=== PATIENT | male | born 1945 | race Caucasian/White ===

== ENCOUNTER 2018-11-12 18:41 | Observation (INO) | payer MEDICARE, OTHER, SELFPAY ==
[~2018-11-12] VITALS: Ht 177.8 cm; Wt 93.6 kg
[~2018-11-12 18:41] MED LIST: ASPI81TA44 PO; ATOR10TA PO; CHOL10002 PO; KRIL500C PO; METO25TA6 PO; MULT-38 PO; NITR0.4T SL; OMEP20TA23 PO; PANT-47 PO; VITC500T PO
[2018-11-12 19:22] LABS: BASOPHILS # (AUTO) 0.1 X10'3 (0-0.2); BASOPHILS % (AUTO) 1.1 % (0-1); EOSINOPHILS # (AUTO) 0.3 X10'3 (0-0.9); EOSINOPHILS % (AUTO) 4.9 % (0-6); HEMOGLOBIN 13.6 g/dl (14.0-17.9); LYMPHOCYTES # (AUTO) 1.9 X10'3 (1.1-4.8); LYMPHOCYTES % (AUTO) 29.2 % (21-51); MEAN CORPUSCULAR HEMOGLOBIN 31.1 PG (27.0-31.0); MEAN CORPUSCULAR HGB CONC 34.1 g/dL (33.0-36.5); MEAN CORPUSCULAR VOLUME 91.3 FL (78-98); MEAN PLATELET VOLUME 7.6 FL (7.4-10.4); MONOCYTES # (AUTO) 0.6 X10'3 (0-0.9); MONOCYTES % (AUTO) 9.1 % (2-12); NEUTROPHILS # (AUTO) 3.6 X10'3 (1.8-7.7); NEUTROPHILS % (AUTO) 55.7 % (42-75); PLATELET COUNT 182 X10'3 (140-440); RED BLOOD COUNT 4.39 X10'6 (4.70-6.10); RED CELL DISTRIBUTION WIDTH 13.5 % (11.5-14.5); WHITE BLOOD COUNT 6.5 X10'3 (4.5-11.0)
[2018-11-12 19:37] LABS: PARTIAL THROMBOPLASTIN TIME 26 SECONDS (22-32)
[2018-11-12 19:40] LABS: ALANINE AMINOTRANSFERASE 36 U/L (12-78); ALBUMIN 3.7 G/DL (3.4-5.0); ALKALINE PHOSPHATASE 81 IU/L (46-116); ANION GAP 6 (8-16); ASPARTATE AMINO TRANSFERASE 22 U/L (10-37); BILIRUBIN,TOTAL 1.2 MG/DL (0.1-1.0); BLOOD UREA NITROGEN 15 MG/DL (7-18); BUN/CREATININE RATIO 12.4 (5.4-32.0); CALCIUM 9.5 MG/DL (8.5-10.1); CHLORIDE 105 MMOL/L (99-107); CREATININE 1.21 MG/DL (0.60-1.10); GLUCOSE 97 MG/DL (70-104); POTASSIUM 4.3 MMOL/L (3.5-5.1); SODIUM 140 MMOL/L (135-145); TOTAL CARBON DIOXIDE 28.9 MMOL/L (24-32); TOTAL PROTEIN 7.3 G/DL (6.4-8.2); eGFR 59 ML/MIN
[2018-11-12] MEDS ORDERED: aspirin 81mg tab.chew PO ONE (22:35)
[2018-11-12] MEDS ORDERED: nitroGLYCERIN 0.4mg SUBLingual tab SL PRN (22:35)
--- NOTE | 2018-11-12 23:00 | NUR ---
Patient states he has "a little chest pressure" does not want Nitroglycerin at this time. States pain is "same as before but less"
[2018-11-13] MEDS ORDERED: HYDROcodone/acetaminophen 10/325mg tab PO PRN (01:10)
[2018-11-13] MEDS ORDERED: magnesium hydroxide 30ml (MOM) UD suspension PO PRN (01:10)
[2018-11-13] MEDS ORDERED: acetaminophen 325mg tablet PO PRN (01:10)
[2018-11-13] MEDS ORDERED: ondansetron/PF 4mg/2ml inj IV PRN (01:10)
[2018-11-13] MEDS ORDERED: mag hydrox/Alum hydrox/simeth 30ml oral suspension PO PRN (01:10)
[2018-11-13] MEDS ORDERED: HYDROcodone/acetaminophen 5mg/325mg tablet PO PRN (01:10)
[2018-11-13] MEDS ORDERED: ATOR40TA PO (01:19)
--- NOTE | 2018-11-13 02:26 | NUR ---
Patient in room PCU 3021. I have received report from MOHAN Deleon in the ER and had the opportunity to ask questions and assume patient care.
--- NOTE | 2018-11-13 02:49 | NUR ---
Arrived to the floor in a wheelchair w/o problem, the patient ambulated to his bed independently.
[2018-11-13 03:09] VITALS: BP 116/68
[2018-11-13 06:00] VITALS: BP 105/60
--- NOTE | 2018-11-13 06:20 | NUR ---
Problems reprioritized. Patient report given, questions answered & plan of care reviewed with Art,RN.
[2018-11-13] MEDS ORDERED: enoxaparin 60mg/0.6ml syringe SUBCUT SCH (08:00)
[2018-11-13] MEDS ORDERED: enoxaparin 30mg/0.3ml syringe SUBCUT SCH (08:00)
[2018-11-13] MEDS: metoprolol tartrate 25mg tablet PO SCH ×2 (08:00→21:03)
[2018-11-13] MEDS: atorvastatin 20mg tablet PO SCH (08:07)
[2018-11-13] MEDS: vitamin D (cholecalciferol) 1,000 unit tablet PO SCH (08:07)
[2018-11-13] MEDS: ascorbic acid 500mg tablet PO SCH (08:08)
[2018-11-13] MEDS: aspirin 81mg tablet.DR PO SCH (08:08)
[2018-11-13] MEDS: multivitamins, therapeutics tablet PO SCH (08:08)
[2018-11-13] MEDS ORDERED: SILD100T PO (09:54)
[2018-11-13] MEDS ORDERED: METO-384 PO (09:54)
[2018-11-13] MEDS ORDERED: NITR0.4T SL (10:04)
[2018-11-13 11:00] VITALS: BP 111/55
--- NOTE | 2018-11-13 11:52 | NUR ---
Patient in room PCU 3021. I have received report from Art RN and had the opportunity to ask questions and assume patient care.
[2018-11-13 15:00] VITALS: BP 118/60
--- NOTE | 2018-11-13 15:15 | NUR ---
PAGER ID: [phone] MESSAGE: manuel Fuller in [phone] is NPO for a stress test, yet their is no stress test ordered. Pt also has orders for a Paracentesis, but your notes don't indicate why. If he isn't going to have a stress test today, can we feed him? Art, [id number]
[2018-11-13] MEDS ORDERED: nitroGLYCERIN 0.4mg SUBLingual tab SL PRN (15:20)
[2018-11-13] MEDS ORDERED: aminophylline 250mg/10ml inj. IV PRN (15:20)
[2018-11-13] MEDS ORDERED: regadenoson 0.4mg/5ml syringe IV ONE (15:20)
[2018-11-13] MEDS ORDERED: metoprolol tartrate 1mg/ml inj IV PRN (15:20)
--- NOTE | 2018-11-13 18:46 | NUR ---
Problems reprioritized. Patient report given, questions answered & plan of care reviewed with MOHAN Gupta.
[2018-11-13 19:00] VITALS: BP 112/59
--- NOTE | 2018-11-13 19:25 | NUR ---
Patient in room PCU 3021. I have received report from MOHAN Kennedy and had the opportunity to ask questions and assume patient care. Patient awake for bedside report and stable at this time. On room air and SL with PIV R AC. Will continue to monitor closely.
--- NOTE | 2018-11-13 21:06 | NUR ---
Late administration of 25 mg metoprolol PO due to priority of care. VS stable and within parameters. Will continue to monitor closely.
[2018-11-13 23:00] VITALS: BP 99/58
[2018-11-14] VITALS (11 sets, daily range): BP systolic 96–132; BP diastolic 16–65
[2018-11-14 06:10] LABS: BASOPHILS % (AUTO) 0.6 % (0-1); EOSINOPHILS # (AUTO) 0.3 X10'3 (0-0.9); EOSINOPHILS % (AUTO) 4.4 % (0-6); HEMATOCRIT 38.2 % (42.0-52.0); HEMOGLOBIN 13.4 g/dl (14.0-17.9); LYMPHOCYTES # (AUTO) 1.5 X10'3 (1.1-4.8); LYMPHOCYTES % (AUTO) 24.7 % (21-51); MEAN CORPUSCULAR HEMOGLOBIN 31.4 PG (27.0-31.0); MEAN CORPUSCULAR HGB CONC 35.1 g/dL (33.0-36.5); MEAN CORPUSCULAR VOLUME 89.3 FL (78-98); MEAN PLATELET VOLUME 7.6 FL (7.4-10.4); MONOCYTES # (AUTO) 0.5 X10'3 (0-0.9); MONOCYTES % (AUTO) 8.7 % (2-12); NEUTROPHILS # (AUTO) 3.7 X10'3 (1.8-7.7); NEUTROPHILS % (AUTO) 61.6 % (42-75); PLATELET COUNT 166 X10'3 (140-440); RED BLOOD COUNT 4.28 X10'6 (4.70-6.10); RED CELL DISTRIBUTION WIDTH 13.5 % (11.5-14.5); WHITE BLOOD COUNT 6.1 X10'3 (4.5-11.0)
--- NOTE | 2018-11-14 06:24 | NUR ---
Problems reprioritized. Patient report given, questions answered & plan of care reviewed with MOHAN Forman.
[2018-11-14 06:30] LABS: ALANINE AMINOTRANSFERASE 28 U/L (12-78); ALBUMIN 3.3 G/DL (3.4-5.0); ALKALINE PHOSPHATASE 75 IU/L (46-116); ANION GAP 7 (8-16); ASPARTATE AMINO TRANSFERASE 23 U/L (10-37); BILIRUBIN,TOTAL 1.2 MG/DL (0.1-1.0); BLOOD UREA NITROGEN 17 MG/DL (7-18); BUN/CREATININE RATIO 14.9 (5.4-32.0); CALCIUM 9.2 MG/DL (8.5-10.1); CHLORIDE 107 MMOL/L (99-107); CREATININE 1.14 MG/DL (0.60-1.10); GLUCOSE 96 MG/DL (70-104); POTASSIUM 4.2 MMOL/L (3.5-5.1); SODIUM 141 MMOL/L (135-145); TOTAL CARBON DIOXIDE 26.9 MMOL/L (24-32); TOTAL PROTEIN 6.6 G/DL (6.4-8.2); eGFR 63 ML/MIN
[2018-11-14] MEDS: metoprolol tartrate 25mg tablet PO SCH (08:00)
[2018-11-14] MEDS: multivitamins, therapeutics tablet PO SCH (13:44)
[2018-11-14] MEDS: aspirin 81mg tablet.DR PO SCH (13:44)
[2018-11-14] MEDS: ascorbic acid 500mg tablet PO SCH (13:45)
[2018-11-14] MEDS: vitamin D (cholecalciferol) 1,000 unit tablet PO SCH (13:45)
[2018-11-14] MEDS: atorvastatin 20mg tablet PO SCH (13:45)
--- NOTE | 2018-11-14 16:23 | NUR ---
IV dc'd. No new meds ordered. Instructed to follow up with pcp for echo. Pt verbalizes understanding. DC'd via wheelchair in stable condition.
== END 2018-11-14 16:20 | disposition home or self-care (01) ==
LOC: ER 18:42 → PCU 3S 11-13 01:58 → CMPBEDREQ 11-13 02:10
PROVIDERS: ADMIT Internal Medicine; ATTEND Internal Medicine
DX: I25.110 Atherosclerotic heart disease of native coronary artery with unstable angina pectoris (principal); E78.5 Hyperlipidemia, unspecified; E78.00 Pure hypercholesterolemia, unspecified; I10 Essential (primary) hypertension; Z95.1 Presence of aortocoronary bypass graft; Z79.899 Other long term (current) drug therapy; Z82.49 Family history of ischemic heart disease and other diseases of the circulatory system; E11.9 Type 2 diabetes mellitus without complications; K21.9 Gastro-esophageal reflux disease without esophagitis
CPT/HCPCS: 36415; 71045; 78452; 80053; 84484; 85025; 85610; 85730; 87081; 93005; 93017; 96372; 99284; A9500; G0378; J0280; J1650; J2785

== ENCOUNTER 2020-03-07 11:27 | Emergency (ER) | payer OTHER, MEDICARE ==
[~2020-03-07] VITALS: Ht 177.8 cm; Wt 90.0 kg
[~2020-03-07 11:27] MED LIST changes: -ATOR10TA PO; +ATOR40TA PO; +METO-384 PO; -METO25TA6 PO; -OMEP20TA23 PO; -PANT-47 PO
[2020-03-07 12:34] LABS: BASOPHILS % (AUTO) 0.5 % (0-1); EOSINOPHILS # (AUTO) 0.5 X10'3 (0-0.9); EOSINOPHILS % (AUTO) 7.5 % (0-6); HEMATOCRIT 38.7 % (42.0-52.0); HEMOGLOBIN 13.1 g/dl (14.0-17.9); LYMPHOCYTES # (AUTO) 1.3 X10'3 (1.1-4.8); LYMPHOCYTES % (AUTO) 19.4 % (21-51); MEAN CORPUSCULAR HEMOGLOBIN 31.4 PG (27.0-31.0); MEAN CORPUSCULAR VOLUME 92.5 FL (78-98); MEAN PLATELET VOLUME 7.8 FL (7.4-10.4); MONOCYTES # (AUTO) 0.6 X10'3 (0-0.9); MONOCYTES % (AUTO) 8.2 % (2-12); NEUTROPHILS # (AUTO) 4.3 X10'3 (1.8-7.7); NEUTROPHILS % (AUTO) 64.4 % (42-75); PLATELET COUNT 188 X10'3 (140-440); RED BLOOD COUNT 4.18 X10'6 (4.70-6.10); RED CELL DISTRIBUTION WIDTH 13.2 % (11.5-14.5); WHITE BLOOD COUNT 6.7 X10'3 (4.5-11.0)
[2020-03-07 12:50] LABS: D-DIMER 0.42 MG/L FEU (0-0.50)
[2020-03-07 12:55] LABS: ALANINE AMINOTRANSFERASE 29 U/L (12-78); ALBUMIN 3.7 G/DL (3.4-5.0); ALKALINE PHOSPHATASE 104 IU/L (46-116); ANION GAP 7 (8-16); ASPARTATE AMINO TRANSFERASE 25 U/L (10-37); BILIRUBIN,TOTAL 1.1 MG/DL (0.1-1.0); BLOOD UREA NITROGEN 10 MG/DL (7-18); BUN/CREATININE RATIO 9.9 (5.4-32.0); CALCIUM 9.5 MG/DL (8.5-10.1); CHLORIDE 108 MMOL/L (99-107); CREATININE 1.01 MG/DL (0.60-1.10); GLUCOSE 101 MG/DL (70-104); POTASSIUM 3.9 MMOL/L (3.5-5.1); SODIUM 143 MMOL/L (135-145); TOTAL CARBON DIOXIDE 28.2 MMOL/L (24-32); TOTAL PROTEIN 7.5 G/DL (6.4-8.2); eGFR 72 ML/MIN
== END 2020-03-07 14:57 | disposition home or self-care (01) ==
LOC: ER 11:27
DX: J06.9 Acute upper respiratory infection, unspecified (principal); Z20.828 Contact with and (suspected) exposure to other viral communicable diseases; E78.00 Pure hypercholesterolemia, unspecified; I10 Essential (primary) hypertension; Z95.1 Presence of aortocoronary bypass graft; Z79.82 Long term (current) use of aspirin; Z79.899 Other long term (current) drug therapy
CPT/HCPCS: 36415; 71045; 80053; 83880; 84484; 85025; 85379; 87635; 93005; 99285